=== PATIENT | male | born 1955 | race Caucasian/White ===

== ENCOUNTER 2024-12-29 08:58 | Outpatient (CLI) | payer BC | END 2024-12-29 08:59 | disposition home or self-care (01) | LOC: NAV RAD 08:58 | PROVIDERS: ATTEND Family Medicine | DX: M25.511 Pain in right shoulder (principal); M19.011 Primary osteoarthritis, right shoulder ==

== ENCOUNTER 2025-01-01 08:11 | Emergency (ER) | payer BC ==
[2025-01-01 09:13] LABS: ALT (SGPT) 31 U/L (Less than 45); AST (SGOT) 34 U/L (11-34); Albumin 4.6 g/dL (3.1-4.5); Alkaline Phosphatase 78 U/L (40-110); Anion Gap 13 mmol/L (10-20); BUN (Urea Nitrogen) 11 mg/dL (8.4-25.7); Bilirubin, Total 0.7 mg/dL (0.3-1.2); Calc. Creatinine Clearance 0 mL/min (70-130); Calcium 9.5 mg/dL (7.8-10.44); Carbon Dioxide 25 mmol/L (23-31); Chloride 104 mmol/L (98-107); Globulin 3.5 g/dL (2.4-3.5); Glucose 112 mg/dL (80-115); Potassium 4.3 mmol/L (3.5-5.1); Sodium 138 mmol/L (136-145)
[2025-01-01 09:15] LABS: Troponin I Less than 0.010 ng/mL (< 0.028)
[2025-01-01 09:16] LABS: INR-International Normal Ratio 1.4; Prothrombin Time 17.1 sec (12.0-14.7)
[2025-01-01 09:17] LABS: PTT 36.5 sec (22.9-36.1)
[2025-01-01] MEDS ORDERED: Aspirin Chewable 81 MG TAB ONE ×2 (09:33→09:36)
[2025-01-01 10:07] LABS: %Lymphocytes 17.1 % (21.0-51.0); %Monocytes 5.1 % (0.0-10.0); %Neutrophils 74.0 % (42.0-75.0); Hematocrit 40.4 % (42.0-52.0); Hemoglobin 15.0 g/dL (14.0-18.0); Manual Diff?? NO; Mean Corpuscular Hemoglobin 32.4 pg (27.0-31.0); Mean Corpuscular Volume 87.0 fl (78.0-98.0); Platelet Count 179 10x3/uL (130-400); Red Blood Cell (RBC) Count 4.64 mill/uL (4.70-6.10); White Blood Cell (WBC) Count 8.8 10x3/uL (4.8-10.8)
[2025-01-01 10:08] LABS: #Basophils 0.1 thou/uL (0.0-0.2); #Eosinophils 0.2 thou/uL (0.0-0.7); #Lymphocytes 1.5 thou/uL (1.20-3.40); #Monocytes 0.4 thou/uL (0.11-0.59); #Neutrophils 6.5 thou/uL (1.40-6.50); %Basophils 1.0 % (0.0-1.0); %Eosinophils 2.8 % (0.0-10.0)
== END 2025-01-01 12:30 | disposition short-term general hospital (02) ==
LOC: NAV ERS 08:11
DX: R42 Dizziness and giddiness (principal); R29.701 NIHSS score 1
CPT/HCPCS: 36416; 70450; 80053; 84484; 85025; 85610; 85730; 93005; 94760